=== PATIENT | male | born 1985 | race Caucasian/White ===

== ENCOUNTER 2018-02-02 07:52 | Emergency (ER) | payer OTHER, MEDICAID ==
[2018-02-02] MEDS ORDERED: MAG HYDROX/AL HYDROX/SIMETH 30 ML UDCUP ONE (08:46)
[2018-02-02] MEDS ORDERED: LIDOCAINE 2% VISCOUS 15 ML UDCUP ONE (08:46)
[2018-02-02] MEDS ORDERED: fentaNYL 100 MCG/2 ML INJ IVP ONE (08:48)
[2018-02-02] MEDS ORDERED: MAG HYDROX/AL HYDROX/SIMETH 30 ML UDCUP PO ONE (08:48)
[2018-02-02] MEDS ORDERED: NS 1,000 ML IV ONE ×2 (08:48)
[2018-02-02] MEDS ORDERED: LIDOCAINE 2% VISCOUS 15 ML UDCUP PO ONE (08:48)
[2018-02-02] MEDS ORDERED: KETOROLAC 30 MG/1 ML SDV IVP ONE (08:48)
[2018-02-02] MEDS ORDERED: ONDANSETRON 4 MG/2 ML VIAL IVP ONE (08:48)
--- NOTE | 2018-02-02 08:55 | EDPHY ---
H & P Stated Complaint: abd pain since Thursday . Seen on Sat here, no better. Time Seen by Provider: 02/02/18 08:27 HPI/ROS: CHIEF COMPLAINT: Epigastric pain, reflux, right mid and lower quadrant pain HISTORY OF PRESENT ILLNESS: This is a 32-year-old male presents emergency department complaining of ongoing symptoms since he was seen 3 days ago in this emergency department. 3 days ago, the patient presented with reports of mild epigastric discomfort which he thought was related to reflux, which he has had in the past, as well several episodes of diarrhea and some right lower quadrant pain. At that time the patient had normal labs including CBC and chemistries. He had a CT scan which demonstrated air-fluid level in this esophagus suggestive of reflux, normal gallbladder, no gallstones, normal pancreas, normal appendix, and some scattered lymph nodes in the right lower quadrant suggestive of early mesenteric adenitis. He was discharged on Levsin and told to start a bland diet. He re-presented today reporting that his reflux discomfort has gotten worse, he has significant epigastric pain as well as pain into the lower chest. He is also complaining of crampy discomfort in the right mid quadrant and right lower quadrant. He had diarrhea yesterday but no bowel movement today. He has been eating a bland diet with the exception of last night when he had a burrito. He had some vomiting 2 days ago. He has been using Levsin for the discomfort. No fever, chills, shortness of breath, palpitations, urinary complaints, headache, lightheadedness. REVIEW OF SYSTEMS: A comprehensive 10 system review of systems was reviewed and is otherwise negative aside from elements mentioned in the history of present illness and medical decision making. PAST MEDICAL HISTORY: Epigastric discomfort thought to be reflux for which he has intermittently been on omeprazole as well as ranitidine. SOCIAL HISTORY: No alcohol use as it significantly worsens his reflux, smoker. VITAL SIGNS Reviewed by me. GENERAL: Well-developed, well-nourished, frequently rubbing the right side of his abdomen and reporting discomfort. HEENT: Atraumatic. Eyes: No icterus, no injection. Mouth: Slightly dry mucous membranes, dry lips. No erythema or lesions. Neck: supple with no adenopathy. LUNGS: Clear to auscultation bilaterally, no wheezes, rhonchi or rales. CARDIAC: Regular rate and rhythm, no rubs, murmurs or gallops. ABDOMEN: Soft, epigastric tenderness, mild right upper quadrant tenderness, moderate right mid quadrant tenderness. No guarding or rebound. Slightly distended. Bowel sounds normal. BACK: No CVA tenderness. EXTREMITIES: No trauma. No edema. Range of motion is normal throughout. NEURO: Alert and oriented, grossly nonfocal. SKIN: Warm and dry, no rash. PSYCHIATRIC: Normal mentation, no agitation. - Personal History Current Tetanus Diphtheria and Acellular Pertussis (TDAP): Yes Tetanus Vaccine Date: 2014 - Medical/Surgical History Hx Asthma: No Hx Chronic Respiratory Disease: No Hx Diabetes: No Hx Cardiac Disease: No Hx Renal Disease: No Hx Cirrhosis: No Hx Alcoholism: No Hx HIV/AIDS: No Hx Splenectomy or Spleen Trauma: No Other PMH: Med-GERD. Surg-none - Social History Smoking Status: Heavy smoker Constitutional: Initial Vital Signs Temperature (C) 36.4 C 02/02/18 08:00 Heart Rate 80 02/02/18 08:00 Respiratory Rate 22 H 02/02/18 08:00 Blood Pressure 127/75 H 02/02/18 08:00 O2 Sat (%) 96 02/02/18 08:00 O2 Delivery Mode Room Air O2 (L/minute) 2 Allergies/Adverse Reactions: oxycodone [From Percocet] Allergy (Verified 02/02/18 08:00) Home Medications: Medication Instructions Recorded Hyoscyamine Sulfate [Levsin, 0.125 - 0.25 mg SL Q6 PRN #20 tab 01/30/18 Hyomax-Sl 0.125 mg (*)] Ondansetron Odt [Zofran Odt] 4 - 8 mg PO Q4PRN PRN #4 tab 01/30/18 Ranitidine HCl 01/30/18 Medical Decision Making - Diagnostics Imaging Results: Xray: 3 way abdominal series was obtained. I viewed the images myself on the PACS system. My interpretation of the images is: No free air, significant stool in the colon both right and left side. The radiology interpretation is: Pending. I discussed the results with the patient. Imaging: I viewed and interpreted images myself ED Course/Re-evaluation: I reviewed the patient's CT scan with the patient and reviewed his labs from the previous visit. Ultrasound imaging of the gallbladder is not warranted given his recent CT scan demonstrating no gallstones, no pericholecystic fluid, and no gallbladder wall thickening and normal biliary ducts. We will repeat LFTs. Patient's pancreas is normal on the CT scan. Lipase was ordered. Patient received a GI cocktail. 2 L of normal saline, fentanyl and Toradol for pain. 9:55 a.m.: Patient was reexamined. He is feeling significantly improved with a residual amount of right lower quadrant discomfort. Patient reports that the GI cocktail definitely helped his epigastric discomfort. Labs demonstrate a normal white count, normal chemistries including BUN and creatinine, normal IR TS, normal amylase. Patient did have a lipase ordered which returned at 3:35 a.m., upper limit of normal 300. Abdominal series ordered to evaluate for possible constipation, gassy distention , or any evidence of localized ileus. X-ray demonstrates significant stool especially in the right lower quadrant. Patient was advised to use magnesium citrate to clear out the stool or to take a laxative such as Metamucil. He was discharged with instructions regarding Tylenol, ibuprofen for mild-to- moderate discomfort, Levsin for crampy pain, and short course of [place] for more severe pain. Re-initiation of treatment for reflux was also discussed. See discharge instructions. Differential Diagnosis: After obtaining the patient's history and performing an examination, differential diagnosis considered included but was not limited to appendicitis, cholecystitis, gastritis, pancreatitis, kidney stones, urinary tract infections , gassy distention, bowel obstruction constipation, mesenteric adenitis, diverticulitis and other causes. - Data Points Laboratory Results: 02/02/18 02/02/18 02/02/18 09:17 09:03 08:15 POC Sodium 138 mEq/L mEq/L (135-145) POC Potassium 3.4 mEq/L mEq/L (3.3-5.0) POC Chloride 111.0 mEq/L H mEq/L (97-110) POC Total CO2 27 mEq/L mEq/L (22-31) POC BUN 10 mg/dL mg/dL (7-23) POC Creatinine 0.9 mg/dL mg/dL (0.7-1.3) POC Glucose 124 mg/dL H mg/dL (70-100) POC Calcium 8.7 mg/dL mg/dL (8.5-10.4) POC Total Bilirubin 0.4 mg/dL mg/dL (0.1-1.4) POC GGT 17 IU/L IU/L (5-65) POC AST 39 IU/L IU/L (17-59) POC ALT 45 IU/L IU/L (21-72) POC Alk Phosphatase 103 IU/L IU/L (38-126) POC Total Protein 6.4 g/dL g/dL (6.3-8.2) POC Albumin 3.3 g/dL L g/dL (3.5-5.0) POC Amylase 82 IU/L IU/L (30-110) Lipase 335 IU/L H IU/L (23-300) Medications Given: Discontinued Medications Al Hydroxide/Mg Hydroxide (Maalox Susp) 30 ml PO ONCE ONE Stop: 02/02/18 08:49 Last Admin: 02/02/18 09:02 Dose: 30 ml Fentanyl (Sublimaze) 75 mcg IVP EDNOW ONE Stop: 02/02/18 08:49 Last Admin: 02/02/18 08:59 Dose: 75 mcg Sodium Chloride (Ns) 1,000 mls @ 0 mls/hr IV EDNOW ONE; Wide Open PRN Reason: Protocol Stop: 02/02/18 08:49 Last Admin: 02/02/18 09:10 Dose: 1,000 mls Sodium Chloride (Ns) 1,000 mls @ 0 mls/hr IV EDNOW ONE; Wide Open PRN Reason: Protocol Stop: 02/02/18 08:49 Last Admin: 02/02/18 08:15 Dose: 1,000 mls Ketorolac Tromethamine (Toradol) 30 mg IVP EDNOW ONE Stop: 02/02/18 08:49 Last Admin: 02/02/18 08:56 Dose: 30 mg Lidocaine (Lidocaine 2% Viscous) 15 ml PO ONCE ONE Stop: 02/02/18 08:49 Last Admin: 02/02/18 09:02 Dose: 15 ml Ondansetron HCl (Zofran) 4 mg IVP EDNOW ONE Stop: 02/02/18 08:49 Last Admin: 02/02/18 08:54 Dose: 4 mg Point of Care Test Results: CBC CBC Collection Date 02/02/18 CBC Collection Time 08:15 WBC 7.6 RBC 5.12 HGB 15.6 HCT 45.1 PLT 229 Neut # 4.2 Neut 54.8 LYMPH # 2.4 LYMPH 31.7 Other WBC # 1.0 Other WBC 13.5 MCV 88.1 Chemistry 02/02/18 02/02/18 09:17 09:03 POC Sodium 138 mEq/L mEq/L (135-145) POC Potassium 3.4 mEq/L mEq/L (3.3-5.0) POC Chloride 111.0 mEq/L H mEq/L (97-110) POC Total CO2 27 mEq/L mEq/L (22-31) POC BUN 10 mg/dL mg/dL (7-23) POC Creatinine 0.9 mg/dL mg/dL (0.7-1.3) POC Glucose 124 mg/dL H mg/dL (70-100) POC Calcium 8.7 mg/dL mg/dL (8.5-10.4) POC Total Bilirubin 0.4 mg/dL mg/dL (0.1-1.4) POC GGT 17 IU/L IU/L (5-65) POC AST 39 IU/L IU/L (17-59) POC ALT 45 IU/L IU/L (21-72) POC Alk Phosphatase 103 IU/L IU/L (38-126) POC Total Protein 6.4 g/dL g/dL (6.3-8.2) POC Albumin 3.3 g/dL L g/dL (3.5-5.0) POC Amylase 82 IU/L IU/L (30-110) Liver Function Tests LFT Collection Date 02/02/18 LFT Collection Time 08:15 Departure - Departure Disposition: Home, Routine, Self-Care Clinical Impression: Reflux gastritis Abdominal pain Qualifiers: Abdominal location: right upper quadrant Qualified Code(s): R10.11 - Right upper quadrant pain Constipation Qualifiers: Constipation type: unspecified constipation type Qualified Code(s): K59.00 - Constipation, unspecified Condition: Good Instructions: Gastritis (ED), Diet for Stomach Ulcers and Gastritis (ED), Acute Abdominal Pain (ED), Mesenteric Adenitis (ED) Additional Instructions: 1. For your upper abdominal pain and reflux, I suggest that you begin taking course of omeprazole. Use this regularly for the next 2 weeks. Please follow up with your primary care physician within the next 2 weeks. You may need to be on a proton pump inhibitor for several months. The 2. Please follow the diet for gastritis and stomach ulcers. 3. Please follow up with a overhead crane inspector if you're not improving as expected. You been given referral below, and your primary care physician can also help facilitate this. 4. For your right-sided mid and lower abdominal pain: Please take ibuprofen 400 -600 mg every 6-8 hours around the clock for the next several days. This may flare up your gastritis, so I suggest that you take oral Maalox solution 10-15 minutes prior to taking the ibuprofen. Make sure you also have had some food in your stomach when you take the ibuprofen. 5. Your x-ray demonstrates a moderate amount of stool specially in the right lower quadrant. I suggested she take a gentle laxative such as Metamucil. You could also use some magnesium citrate, making half of the bottle of magnesium citrate with 16 oz of Gatorade. This should allow you to have significant stool output within the next 4 hr. If this causes crampy abdominal discomfort, please take the Levsin. 6. Please follow up with your primary care physician within the next several days to ensure that you are improving as expected. 7. You been given a short prescription for hydrocodone, this is a narcotic, it will help your abdominal pain. It may also cause of constipation. Continue to use the Levsin if you are feeling crampy abdominal discomfort. Referrals: NONE *PRIMARY CARE P,. [Primary Care Provider] - As per Instructions (Please follow up with your primary care physician within the next several days to ensure that you are improving as expected.)
[2018-02-02 11:34] VITALS: BP 115/57
== END 2018-02-02 11:05 | disposition home or self-care (01) ==
LOC: CED 07:52
DX: R10.13 Epigastric pain (principal); K59.00 Constipation, unspecified; E86.9 Volume depletion, unspecified; F17.200 Nicotine dependence, unspecified, uncomplicated
CPT/HCPCS: 74022-PO; 80048-PO; 80076-PO; 82150-PO; 96374; J1885; J2405; J3010